=== PATIENT | female | born 1950 | race Caucasian/White ===

== ENCOUNTER → 2020-11-15 | Outpatient (CLI) | payer MEDICARE, OTHER ==
[~2020-11-15] MED LIST: ARICEPT10 MG PO; GABAPENTIN800 MG PO; LABETALOL HCL200 MG PO; LATANOPROST 0.7.5 ML OP; MECLIZINE HCL12.5 MG PO; NITROSTAT0.4 MG SL; OMEPRAZOLE20 MG PO; RANOLAZINE ER500 MG PO; TRAMADOL HCL50 MG PO
== END ==
LOC: EXRD 09:33
DX: M19.90 Unspecified osteoarthritis, unspecified site (principal); M50.30 Other cervical disc degeneration, unspecified cervical region
CPT/HCPCS: 72040

== ENCOUNTER → 2020-12-04 | Outpatient (CLI) | payer MEDICARE, OTHER | LOC: KOH-I 11:52 | DX: M25.571 Pain in right ankle and joints of right foot (principal); S92.421A Displaced fracture of distal phalanx of right great toe, initial encounter for closed fracture; X50.1XXA Overexertion from prolonged static or awkward postures, initial encounter | CPT/HCPCS: 73600; 73620 ==

== ENCOUNTER → 2021-02-28 | Outpatient (CLI) | payer MEDICARE, OTHER | LOC: RAD 15:39 | DX: M25.551 Pain in right hip (principal); M47.816 Spondylosis without myelopathy or radiculopathy, lumbar region; I71.4 Abdominal aortic aneurysm, without rupture; W19.XXXA Unspecified fall, initial encounter | CPT/HCPCS: 72100; 73502 ==

== ENCOUNTER 2021-03-06 15:21 | Observation (INO) | payer MEDICARE, OTHER ==
[~2021-03-06] VITALS: Ht 160 cm; Wt 92.1 kg
[~2021-03-06 15:21] MED LIST changes: -LABETALOL HCL200 MG PO; -MECLIZINE HCL12.5 MG PO
[2021-03-06 15:59] LABS: HEMOGLOBIN 14.2 gm/dl (12.3-15.3); RED BLOOD COUNT 4.83 M/UL (4.00-5.10)
[2021-03-06] MEDS ORDERED: MECLIZINE HCL12.5 MG PO (22:46)
[2021-03-07 04:11] LABS: HEMOGLOBIN 13.7 gm/dl (12.3-15.3); RED BLOOD COUNT 4.7 M/UL (4.00-5.10)
[2021-03-07 04:28] LABS: BUN/CREATININE RATIO 12 (0-10)
[2021-03-07] MEDS ORDERED: LABETALOL HCL200 MG PO (17:57)
== END 2021-03-07 18:42 | disposition home or self-care (01) ==
LOC: ER1 15:21 → MED SURG 4 18:39 → CDU 18:39 → MED SURG 4 18:39
PROVIDERS: Preventive Medicine Occupational Medicine; ADMIT Family Medicine
DX: I25.119 Atherosclerotic heart disease of native coronary artery with unspecified angina pectoris (principal); I10 Essential (primary) hypertension; E78.5 Hyperlipidemia, unspecified; I71.4 Abdominal aortic aneurysm, without rupture; K21.9 Gastro-esophageal reflux disease without esophagitis; M06.9 Rheumatoid arthritis, unspecified; F03.90 Unspecified dementia, unspecified severity, without behavioral disturbance, psychotic disturbance, mood disturbance, and anxiety; J44.9 Chronic obstructive pulmonary disease, unspecified; G62.9 Polyneuropathy, unspecified; Z95.5 Presence of coronary angioplasty implant and graft; Z87.891 Personal history of nicotine dependence; Z79.899 Other long term (current) drug therapy; Z20.822 Contact with and (suspected) exposure to COVID-19
CPT/HCPCS: ECHO; 36415; 71045; 80048; 80053; 82550; 82553; 83690; 83874; 84484; 85025; 85027; 86140; 93005; 93306; 99285; G0378; U0002

== ENCOUNTER → 2021-04-30 | Outpatient (CLI) | payer MEDICARE, OTHER ==
[~2021-04-30] MED LIST changes: +LABETALOL HCL200 MG PO; +MECLIZINE HCL12.5 MG PO
== END ==
LOC: HEART 5 04-25 09:15
DX: R07.9 Chest pain, unspecified (principal); E78.5 Hyperlipidemia, unspecified; I10 Essential (primary) hypertension; R00.2 Palpitations
CPT/HCPCS: 78452; A9502; J2785

== ENCOUNTER → 2021-07-12 | Outpatient (CLI) | payer MEDICARE, OTHER | LOC: RAD 16:11 | DX: R06.02 Shortness of breath (principal); J84.9 Interstitial pulmonary disease, unspecified | CPT/HCPCS: 71046 ==

== ENCOUNTER 2021-07-25 15:07 | Inpatient (IN) | payer MEDICARE, OTHER ==
[~2021-07-25] VITALS: Ht 162.6 cm; Wt 97.1 kg
[2021-07-25] MEDS ORDERED: PROTONIX 40 MG40 M1 PO (17:03)
[2021-07-25] MEDS ORDERED: SIMVASTATIN20 MG PO (17:04)
[2021-07-25] MEDS ORDERED: ISOSORBIDE MONO30 MG PO (17:04)
[2021-07-25] MEDS ORDERED: ADVAIR HFA 115/12 GM INH (17:05)
[2021-07-25 17:13] LABS: HEMOGLOBIN 14.3 gm/dl (12.3-15.3); RED BLOOD COUNT 4.87 M/UL (4.00-5.10); WHITE BLOOD COUNT 6.1 K/UL (4.5-11.0)
[2021-07-25 17:28] LABS: BUN/CREATININE RATIO 15 (0-10)
[2021-07-26 02:53] LABS: HEMOGLOBIN 13.7 gm/dl (12.3-15.3); RED BLOOD COUNT 4.63 M/UL (4.00-5.10); WHITE BLOOD COUNT 6.4 K/UL (4.5-11.0)
[2021-07-26 03:18] LABS: BUN/CREATININE RATIO 17 (0-10)
[2021-07-26 21:06] LABS: HEMOGLOBIN 14.6 gm/dl (12.3-15.3); RED BLOOD COUNT 4.93 M/UL (4.00-5.10); WHITE BLOOD COUNT 7.6 K/UL (4.5-11.0)
[2021-07-27 04:07] LABS: HEMOGLOBIN 14.3 gm/dl (12.3-15.3); RED BLOOD COUNT 4.83 M/UL (4.00-5.10); WHITE BLOOD COUNT 7.1 K/UL (4.5-11.0)
[2021-07-27] MEDS ORDERED: ASPIRIN EC81 MG PO (08:55)
[2021-07-27] MEDS ORDERED: BRILINTA 90 MG90 MG PO (08:55)
== END 2021-07-27 10:46 | disposition home or self-care (01) | DRG 247 ==
LOC: M/S 16:14 → PROG CARE 16:14
PROVIDERS: Internal Medicine Interventional Cardiology; ADMIT Internal Medicine
PROC: 027034Z Dilation of Coronary Artery, One Artery with Drug-eluting Intraluminal Device, Percutaneous Approach (ICD-10-PCS; principal; 2021-07-26)
PROC: 4A023N7 Measurement of Cardiac Sampling and Pressure, Left Heart, Percutaneous Approach (ICD-10-PCS; 2021-07-26)
PROC: B2111ZZ Fluoroscopy of Multiple Coronary Arteries using Low Osmolar Contrast (ICD-10-PCS; 2021-07-26)
PROC: B24BZZ4 Ultrasonography of Heart with Aorta, Transesophageal (ICD-10-PCS; 2021-07-26)
PROC: 3E02340 Introduction of Influenza Vaccine into Muscle, Percutaneous Approach (ICD-10-PCS; 2021-07-27)
DX: I25.110 Atherosclerotic heart disease of native coronary artery with unstable angina pectoris (principal); I10 Essential (primary) hypertension; Z20.822 Contact with and (suspected) exposure to COVID-19; E78.5 Hyperlipidemia, unspecified; K21.9 Gastro-esophageal reflux disease without esophagitis; J43.9 Emphysema, unspecified; E78.00 Pure hypercholesterolemia, unspecified; I08.3 Combined rheumatic disorders of mitral, aortic and tricuspid valves; H81.11 Benign paroxysmal vertigo, right ear; F01.50 Vascular dementia, unspecified severity, without behavioral disturbance, psychotic disturbance, mood disturbance, and anxiety; G62.9 Polyneuropathy, unspecified; Z23 Encounter for immunization; Z90.710 Acquired absence of both cervix and uterus; Z90.49 Acquired absence of other specified parts of digestive tract; Z82.49 Family history of ischemic heart disease and other diseases of the circulatory system; Z98.42 Cataract extraction status, left eye; Z98.41 Cataract extraction status, right eye; Z83.3 Family history of diabetes mellitus; Z82.61 Family history of arthritis; Z83.49 Family history of other endocrine, nutritional and metabolic diseases; Z80.8 Family history of malignant neoplasm of other organs or systems; Z82.3 Family history of stroke; Z82.62 Family history of osteoporosis
CPT/HCPCS: ECHO; 36415; 71045; 80048; 80053; 80061; 82550; 82553; 83036; 83540; 83550; 83735; 83880; 84100; 84484; 85025; 85027; 85347; 85610; 86140; 90686; 93005; 93306; 94664; 99152; 99153; C1725; C1769; C1874; C1887; C1894; C9600; G0008; J1644; J1650; J1940; J2250; J2405; J2550; J3010; J3246; Q9967; U0002

== ENCOUNTER → 2021-08-28 | Outpatient (CLI) | payer MEDICARE, OTHER ==
[~2021-08-28] MED LIST changes: +ADVAIR HFA 115/12 GM INH; +ASPIRIN EC81 MG PO; +BRILINTA 90 MG90 MG PO; +ISOSORBIDE MONO30 MG PO; +PROTONIX 40 MG40 M1 PO; +SIMVASTATIN20 MG PO
== END ==
LOC: HEART 5 10:25
DX: R06.00 Dyspnea, unspecified (principal)
CPT/HCPCS: 94060; 94729

== ENCOUNTER → 2021-09-09 | Outpatient (CLI) | payer MEDICARE, OTHER ==
[2021-09-09 14:59] LABS: HEMOGLOBIN 14.1 gm/dl (12.3-15.3); RED BLOOD COUNT 4.75 M/UL (4.00-5.10); WHITE BLOOD COUNT 10.3 K/UL (4.5-11.0)
== END ==
LOC: LAB 13:42
PROVIDERS: Internal Medicine Interventional Cardiology
DX: I25.119 Atherosclerotic heart disease of native coronary artery with unspecified angina pectoris (principal); R94.39 Abnormal result of other cardiovascular function study; I10 Essential (primary) hypertension; H81.11 Benign paroxysmal vertigo, right ear; R06.00 Dyspnea, unspecified; E78.00 Pure hypercholesterolemia, unspecified; E78.5 Hyperlipidemia, unspecified
CPT/HCPCS: 36415; 80048; 85025; 85610; 85730; 93005

== ENCOUNTER 2021-09-17 07:59 | Outpatient (CLI) | payer MEDICARE, OTHER ==
[~2021-09-17] VITALS: Ht 162.6 cm; Wt 96.2 kg
[2021-09-17] MEDS ORDERED: ALEVE220 M1 PO (10:06)
[2021-09-17 21:34] LABS: HEMOGLOBIN 12.8 gm/dl (12.3-15.3); RED BLOOD COUNT 4.37 M/UL (4.00-5.10); WHITE BLOOD COUNT 7.4 K/UL (4.5-11.0)
[2021-09-17 21:52] LABS: BUN/CREATININE RATIO 20 (0-10)
[2021-09-18 03:32] LABS: HEMOGLOBIN 12.1 gm/dl (12.3-15.3); RED BLOOD COUNT 4.16 M/UL (4.00-5.10); WHITE BLOOD COUNT 6.8 K/UL (4.5-11.0)
[2021-09-18 03:57] LABS: BUN/CREATININE RATIO 21 (0-10)
== END 2021-09-18 15:49 | disposition home or self-care (01) ==
LOC: PROG CARE 07:59 → CATH 07:59 → PROG CARE 12:31 → CATH 09-18 15:49
PROVIDERS: Internal Medicine Interventional Cardiology
DX: I25.110 Atherosclerotic heart disease of native coronary artery with unstable angina pectoris (principal); I10 Essential (primary) hypertension; E78.5 Hyperlipidemia, unspecified; G30.1 Alzheimer's disease with late onset; F02.80 Dementia in other diseases classified elsewhere, unspecified severity, without behavioral disturbance, psychotic disturbance, mood disturbance, and anxiety; J43.9 Emphysema, unspecified; K21.9 Gastro-esophageal reflux disease without esophagitis; G62.9 Polyneuropathy, unspecified; Z90.710 Acquired absence of both cervix and uterus; Z95.5 Presence of coronary angioplasty implant and graft; Z87.891 Personal history of nicotine dependence; Z78.0 Asymptomatic menopausal state; E66.9 Obesity, unspecified; Z68.37 Body mass index [BMI] 37.0-37.9, adult; Z79.899 Other long term (current) drug therapy; Z79.82 Long term (current) use of aspirin
CPT/HCPCS: 36415; 80048; 82550; 82553; 84484; 85027; 85347; 94664; 94760; 99152; 99153; C1725; C1769; C1874; C1887; C1894; C9600; J0360; J0461; J1170; J1644; J2250; J3010; J3246; J7040; Q9965

== ENCOUNTER → 2021-11-29 | Outpatient (CLI) | payer MEDICARE, OTHER ==
[~2021-11-29] MED LIST changes: +ALEVE220 M1 PO
== END ==
LOC: CT 11-13 15:30
DX: R06.00 Dyspnea, unspecified (principal)
CPT/HCPCS: 36415; 71275; 82565; 84520; Q9967

== ENCOUNTER → 2022-03-04 | Outpatient (CLI) | payer MEDICARE, OTHER ==
[~2022-03-04] MED LIST changes: +BRILINTA90 MG PO; +VAZALORE81 MG PO
== END ==
LOC: NM 09:00
DX: R11.0 Nausea (principal); R93.3 Abnormal findings on diagnostic imaging of other parts of digestive tract
CPT/HCPCS: 78264; A9541

== ENCOUNTER → 2022-03-17 | Outpatient (CLI) | payer MEDICARE, OTHER | LOC: RAD 12:03 | DX: I25.10 Atherosclerotic heart disease of native coronary artery without angina pectoris (principal) | CPT/HCPCS: 71046 ==

== ENCOUNTER 2022-05-11 17:49 | Emergency (ER) | payer MEDICARE, OTHER | END 2022-05-11 20:53 | disposition home or self-care (01) | LOC: ER1 17:49 | DX: R07.81 Pleurodynia (principal); I11.9 Hypertensive heart disease without heart failure; E11.9 Type 2 diabetes mellitus without complications; Z95.5 Presence of coronary angioplasty implant and graft; W01.0XXA Fall on same level from slipping, tripping and stumbling without subsequent striking against object, initial encounter; Y92.009 Unspecified place in unspecified non-institutional (private) residence as the place of occurrence of the external cause | CPT/HCPCS: 70450; 71111; 72125; 73030; 99284 ==

== ENCOUNTER → 2022-05-21 | Outpatient (CLI) | payer MEDICARE, OTHER ==
[~2022-05-21] VITALS: Ht 162.6 cm; Wt 95.3 kg
== END ==
LOC: EROP 07:45
DX: U07.1 COVID-19 (principal); Z23 Encounter for immunization
CPT/HCPCS: M0222; Q0222

== ENCOUNTER → 2022-07-02 | Outpatient (CLI) | payer MEDICARE, OTHER | LOC: HEART 5 08:48 | DX: R06.02 Shortness of breath (principal); U09.9 Post COVID-19 condition, unspecified | CPT/HCPCS: 94060; 94729 ==